=== PATIENT | female | born 1970 | race Caucasian/White ===

== ENCOUNTER → 2019-08-30 14:09 | Outpatient (CLI) | payer MEDICAID, SELFPAY ==
[2019-08-30 14:01] VITALS: BMI 19.3
--- NOTE | 2019-08-30 14:10 | RAD_ITS ---
STUDY: X-RAY CHEST REASON FOR EXAM: Female, 49 years old. COUGH TECHNIQUE: PA and lateral views of the chest. COMPARISON: None. FINDINGS: Hyperinflation. Scattered calcified granulomas. Minimal increased markings in the posterior medial segment of the left lower lobe. This may represent an early infiltrate. Follow-up is recommended. There is no demonstrated pleural abnormality. Normal size heart. Normal mediastinum and [place]. Normal visualized pulmonary arteries. Normal visualized aortic arch and descending thoracic aorta. Normal visualized thoracic spine. Normal visualized ribs, clavicles, and shoulders. There is no demonstrated abnormality of the visualized soft tissue structures of the upper abdomen. RAD/Chest PA and Lateral IMPRESSION: Mild increased markings in the posterior segment of the left lower lobe. Follow-up is recommended. Hyperinflation. Electronically Signed: Art Schaeffer, at 14:51 EST , Service support ,
== END ==
PROVIDERS: Referring Provider Physician Assistant; Visit Provider Physician Assistant
DX: R05 Cough (principal)
CPT/HCPCS: 71046